=== PATIENT | male | born 1980 | race Caucasian/White ===

== ENCOUNTER 2016-12-10 13:25 | Emergency (ER) | payer SELFPAY ==
[2016-12-10 13:49] VITALS: BP 129/94
--- NOTE | 2016-12-10 13:55 | UC ---
[facility] HPI - HPI Summary HPI Summary: 36 YEAR OLD MALE PRESENTS WITH COMPLAINS OF RIGHT LOWER MOLAR ABSCESS. - History of Current Complaint Chief Complaint: UCDentalProblem Stated Complaint: TOOTH PAIN Time Seen by Provider: 12/10/16 13:50 Hx Obtained From: Patient Onset/Duration: Sudden Onset Severity: Moderate Pain Scale Used: 0-10 Numeric - 8 - Allergies/Home Medications Allergies/Adverse Reactions: Allergies Allergy/AdvReac Type Severity Reaction Status Date / Time Ceftriaxone [From Rocephin] Allergy Severe PASSED OUT Verified 12/10/16 13:43 AFTER RECEIVING MEDICATION PMH/Surg Hx/FS Hx/Imm Hx Previously Healthy: Yes - Surgical History Surgical History: None - Social History Alcohol Use: Occasionally Substance Use Type: None Smoking Status (MU): Heavy Every Day Tobacco Smoker Type: Cigarettes Amount Used/How Often: // Household Exposure Type: Cigarettes Review of Systems Constitutional: Negative Skin: Negative Eyes: Negative ENT: Dental Pain Respiratory: Negative Cardiovascular: Negative Gastrointestinal: Negative Genitourinary: Negative Motor: Negative Neurovascular: Negative Musculoskeletal: Negative Neurological: Negative Psychological: Negative All Other Systems Reviewed And Are Negative: Yes Physical Exam Triage Information Reviewed: Yes Vital Signs: Initial Vital Signs Temp 36.8 C 12/10/16 13:44 Pulse 84 12/10/16 13:44 Resp 16 12/10/16 13:44 BP 129/94 12/10/16 13:44 Pulse Ox 98 12/10/16 13:44 Eye Exam: Normal ENT Exam: Normal Dental: Positive: Abscess @ - RIGHT LOWER MOLAR Neck exam: Normal Neck: Positive: 1 Respiratory Exam: Normal Cardiovascular Exam: Normal Abdominal Exam: Normal Musculoskeletal Exam: Normal Neurological Exam: Normal Psychological Exam: Normal Skin Exam: Normal Dental Complaint Course/Dx - Differential Dx/Diagnosis Provider Diagnoses: DENTAL ABSCESS Discharge - Discharge Plan Condition: Stable Disposition: HOME Prescriptions: Chlorhexidine MW 0.12% 473ML* [Peridex Mouth Wash 0.12%*] 15 ml MT TID PC #480 ml Erythromycin TAB* 500 mg PO QID #40 tab Magic M W2 Robin/Maal/Nyst/Lido* 5 ml SWISH SPIT QID #120 ml Naproxen [Naprosyn 500 mg] 500 mg PO BID #30 tab Patient Education Materials: Dental Abscess (ED) Referrals: No Primary Care Phys,NOPCP [Primary Care Provider] -
== END 2016-12-10 14:09 | disposition home or self-care (01) ==
LOC: UCCORT 13:25
DX: K04.7 Periapical abscess without sinus (principal); Z88.1 Allergy status to other antibiotic agents; F17.210 Nicotine dependence, cigarettes, uncomplicated
CPT/HCPCS: 99202; G0463